=== PATIENT | male | born 1955 | race Asian ===

== ENCOUNTER 2018-02-12 11:53 | Emergency (ER) | payer OTHER ==
[~2018-02-12] VITALS: Ht 167.6 cm; Wt 78.0 kg
[2018-02-12 12:02] VITALS: Ht 167.6 cm; Wt 78.0 kg
[2018-02-12 15:00] VITALS: BP 128/75
== END 2018-02-12 15:00 | disposition home or self-care (01) ==
LOC: ED 11:53
DX: R51 Headache (principal); R42 Dizziness and giddiness; R11.0 Nausea; I10 Essential (primary) hypertension